=== PATIENT | female | born 1950 | race Caucasian/White ===

== ENCOUNTER 2024-07-03 13:56 | Emergency (ER) | payer OTHER ==
[~2024-07-03] VITALS: Ht 152.4 cm; Wt 64.4 kg
[2024-07-03 14:10] VITALS: BP_SYST 110; PULSE 78; RESP 18; TEMP 97.3; O2SAT 96
[2024-07-03 16:47] LABS: INFLUENZA TYPE A Negative (NEGATIVE); INFLUENZA TYPE B NEGATIVE (NEGATIVE)
[2024-07-03] MEDS ORDERED: ZIT250 PO (17:10)
[2024-07-03] MEDS ORDERED: ALBMDI INH (17:10)
[2024-07-03 17:18] VITALS: BP_SYST 110; PULSE 78; RESP 18; TEMP 97.3; O2SAT 96
== END 2024-07-03 17:17 | disposition home or self-care (01) ==
LOC: SED 13:56
DX: J98.4 Other disorders of lung (principal); Z20.822 Contact with and (suspected) exposure to COVID-19; J02.9 Acute pharyngitis, unspecified; R05.9 Cough, unspecified; R09.89 Other specified symptoms and signs involving the circulatory and respiratory systems; E11.9 Type 2 diabetes mellitus without complications; I10 Essential (primary) hypertension; E78.00 Pure hypercholesterolemia, unspecified; Z79.899 Other long term (current) drug therapy; Z79.2 Long term (current) use of antibiotics
CPT/HCPCS: 36415; 71045; 99283